=== PATIENT | female | born 1970 | race Caucasian/White ===

== ENCOUNTER 2017-01-24 16:24 | Emergency (ER) | payer SELFPAY ==
--- NOTE | 2017-02-05 08:35 | ER ---
ADMIT: 01/24/2017 RM/LOC: ER [facility] MR#: [id number] [address] [id number] RENUKA KAMARAA [address] [place] [address] Emergency Room Report SEX: F AGE: 46 : 1970 DATE: 01/24/2017 A 46-year-old female comes into the emergency department with complaints of two days worth of shortness of breath. This has been increasing in nature. She apparently was diagnosed with asthma as a child. She has not seen a physician over 17 years. She continues to smoke. This shortness of breath has gradually progressed. She has a dry hacking nonproductive cough. See T-sheet for remainder of history and physical. The patient diagnosed with exacerbation of asthma. She is given a DuoNeb in the emergency department. Prednisone. Given a prescription at discharge for lisinopril for hypertension and Medrol Dosepak and an albuterol MDI. Instructed to follow up this week with primary doctor. Roger Barbour MD/ [facility] JOB #: [id number] CC: Mirza Bautista MD, Attending Physician
== END 2017-01-24 17:25 | disposition home or self-care (01) ==
LOC: ER 16:24
DX: J45.901 Unspecified asthma with (acute) exacerbation (principal); F17.210 Nicotine dependence, cigarettes, uncomplicated; Z98.890 Other specified postprocedural states; Z79.899 Other long term (current) drug therapy